=== PATIENT | female | born 1945 | race Caucasian/White ===

== ENCOUNTER 2018-10-07 16:45 | Emergency (ER) | payer MEDICARE, OTHER ==
[~2018-10-07] VITALS: Ht 154.9 cm; Wt 68.0 kg
[2018-10-07 19:11] LABS: Basophils # (auto) 0.1 uL; Basophils % (auto) 0.5 % (0.0-2.0); Eosinophils # (auto) 0.3 uL; Hematocrit 26.4 % (36.0-46.0); Lymphocytes # (auto) 1.7 uL; Mean Corpuscular Hemoglobin 32.7 pg (28.0-32.0); Mean Corpuscular Volume 96.3 fL (80.0-100.0); Monocytes % (auto) 8.7 % (0.0-12.0); Neutrophils # (auto) 8.4 uL; Neutrophils % (auto) 72.8 % (37.0-80.0); Platelet Count (auto) 231 10^3/uL (140-450); Red Blood Cells 2.74 10^6/uL (4.0-5.20); Red Cell Distribution Width 13.5 % (11.8-14.3); White Blood Cell 11.6 10^3/uL (4.4-10.8)
[2018-10-07 19:23] LABS: INR 0.98 (0.9-1.15); Partial Thromboplastin Time 31.1 sec (23.64-32.05)
[2018-10-07 19:29] LABS: Albumin 2.6 g/dL (3.4-5.0); Anion Gap 10 (5-15); Blood Urea Nitrogen 62 mg/dL (7-18); Calcium 8.7 mg/dL (8.5-10.1); Carbon Dioxide 26 mmol/L (21-32); Chloride 97 mmol/L (98-107); Glucose 157 mg/dL (74-106); Potassium 3.2 mmol/L (3.5-5.1); Sodium 133 mmol/L (136-145)
[2018-10-07 19:35] LABS: Alanine Aminotransferase 15 U/L (13-56); Alkaline Phosphatase 55 U/L (45-117); Aspartate Aminotransferase 9 U/L (15-37); BUN/Creatinine Ratio 24.2; Bilirubin, Total 0.6 mg/dL (0.2-1.0); GFR African American 24 mL/min; GFR Non-African American 20 mL/min; Total Protein 9.3 g/dL (6.4-8.2)
[2018-10-07] MEDS ORDERED: ONDANSETRON HCL 4 MG/2 ML VIAL IV ONE (22:15)
[2018-10-07] MEDS ORDERED: POTASSIUM CHL 10 Meq TABLET PO ONE (22:15)
[2018-10-07] MEDS ORDERED: MORPHINE SULF INJ 2 MG/ML SYRINGE 1ML IV ONE (22:15)
[2018-10-07 22:30] VITALS: BP 121/74
== END 2018-10-07 22:12 | disposition home or self-care (01) ==
LOC: EDBD 16:45 → ER 16:50
DX: S32.402A Unspecified fracture of left acetabulum, initial encounter for closed fracture (principal); S00.03XA Contusion of scalp, initial encounter; I61.9 Nontraumatic intracerebral hemorrhage, unspecified; C79.51 Secondary malignant neoplasm of bone; N17.9 Acute kidney failure, unspecified; E87.8 Other disorders of electrolyte and fluid balance, not elsewhere classified; D53.9 Nutritional anemia, unspecified; Z88.0 Allergy status to penicillin; W01.0XXA Fall on same level from slipping, tripping and stumbling without subsequent striking against object, initial encounter; Y93.89 Activity, other specified; Y92.89 Other specified places as the place of occurrence of the external cause; Y99.8 Other external cause status
CPT/HCPCS: 36415; 70450; 71045; 72125; 72192; 73610; 80053; 84484; 85025; 85610; 85730; 93005; 94761; 96374; 96375; 99284; J2270; J2405; 51702

== ENCOUNTER 2018-11-27 12:27 | Inpatient (IN) | payer MEDICARE, BC ==
[~2018-11-27] VITALS: Ht 172.7 cm; Wt 82.8 kg
[2018-11-27 13:51] LABS: Urine Bacteria NONE SEEN /hpf (None Seen); Urine Blood 2+ /uL (Negative); Urine Specific Gravity 1.009 (1.001-1.035); Urine WBC 3 /hpf (0 - 5)
[2018-11-27 14:04] LABS: Basophils # (auto) 0 uL; Basophils % (auto) 0.2 % (0.0-2.0); Eosinophils # (auto) 0.2 uL; Hemoglobin 7.2 g/dL (12.2-16.2); Monocytes # (auto) 0.8 uL; Neutrophils # (auto) 9.5 uL
[2018-11-27 14:06] LABS: Eosinophils % (auto) 1.9 % (0.0-7.0); Hematocrit 20.8 % (36.0-46.0); Lymphocytes # (auto) 1.6 uL; Mean Corpuscular Hemoglobin 33.1 pg (28.0-32.0); Mean Corpuscular Hgb Conc. 34.8 g/dL (32.0-36.0); Mean Corpuscular Volume 95.2 fL (80.0-100.0); Monocytes % (auto) 6.3 % (0.0-12.0); Neutrophils % (auto) 78.6 % (37.0-80.0); Platelet Count (auto) 366 10^3/uL (140-450); Red Blood Cells 2.19 10^6/uL (4.0-5.20); Red Cell Distribution Width 14.2 % (11.8-14.3)
[2018-11-27 14:08] LABS: INR 1.05 (0.9-1.15); Partial Thromboplastin Time 31.9 sec (23.64-32.05)
[2018-11-27 14:12] LABS: Alanine Aminotransferase 10 U/L (13-56); Albumin 2.2 g/dL (3.4-5.0); Aspartate Aminotransferase 13 U/L (15-37); BUN/Creatinine Ratio 29.1; Calcium 8.4 mg/dL (8.5-10.1); Carbon Dioxide 29 mmol/L (21-32); GFR African American 22 mL/min; GFR Non-African American 18 mL/min; Glucose 108 mg/dL (74-106)
[2018-11-27 14:30] LABS: Blood Urea Nitrogen 81 mg/dL (7-18)
[2018-11-27] MEDS ORDERED: DEXTROSE 50% SYRINGE 50 ML IV ONE (14:34)
[2018-11-27 14:52] LABS: Alcohol, Urine < 3.0 mg/dL (0-5); Amphetamine Screen, Urine NEGATIVE (NEGATIVE); Barbiturate Scree,Urine NEGATIVE (NEGATIVE); Benzodiazephine Screen, Urine NEGATIVE (NEGATIVE); Cannabinoid Screen, Urine NEGATIVE (NEGATIVE); Cocaine Screen, Urine NEGATIVE (NEGATIVE)
[2018-11-27 15:00] LABS: Opiate Scree,Urine POSITIVE (NEGATIVE); Phencyclidine Screen, Urine NEGATIVE (NEGATIVE)
[2018-11-27] MEDS ORDERED: DEXTROSE (50%) 50ML SYRG IV ONE (15:00)
[2018-11-27 15:18] LABS: Anion Gap 13 (5-15); Chloride 95 mmol/L (98-107); Sodium 137 mmol/L (136-145)
[2018-11-27 15:19] LABS: Alkaline Phosphatase 58 U/L (45-117); Bilirubin, Total 0.3 mg/dL (0.2-1.0); Total Protein 9.3 g/dL (6.4-8.2)
[2018-11-27 15:21] LABS: Potassium 2.2 mmol/L (3.5-5.1)
[2018-11-27] MEDS ORDERED: MORPHINE SULF INJ 2 MG/ML SYRINGE 1ML IV PRN (15:45)
[2018-11-27] MEDS ORDERED: POTASSIUM CHLORIDE 40 MEQ, LIDOCAINE 1% (LOCAL ANESTH.) 4 ML in SODIUM CHL 0.9% 100 ML IV ONE (15:45)
[2018-11-27] MEDS ORDERED: SODIUM CHLORIDE 0.9% 500 ML IV ONE (15:45)
[2018-11-27] MEDS ORDERED: NITROGLYCERIN 0.4 MG SL TAB SL PRN (15:45)
[2018-11-27] MEDS ORDERED: D5W/SOD CHL 0.45% 1,000 ML IV SCH (16:15)
[2018-11-27 16:46] LABS: % Iron Saturation 89.9 % (15-50)
[2018-11-27] MEDS: LEVOFLOXACIN 250MG 50 ML IV SCH (17:15)
[2018-11-27] MEDS: ACCU-CHEK COMFORT CURVE STRIP VI SCH ×4 (17:25→22:42)
[2018-11-27] MEDS: D5W/ SOD CHL 0.9%/KCL 20MEQ 1,000 ML IV SCH (18:21)
[2018-11-27 18:39] LABS: BUN/Creatinine Ratio 28.6
[2018-11-27] MEDS: FAMOTIDINE (10MG/ML) 2ML VL IV SCH (18:48)
[2018-11-27 18:56] LABS: Potassium 2.4 mmol/L (3.5-5.1)
[2018-11-28] MEDS: AMIODARONE HCL 900 MG in DEXTROSE 500 ML IV SCH ×2
[2018-11-28] MEDS: ACCU-CHEK COMFORT CURVE STRIP VI SCH ×12 (00:10→23:52)
[2018-11-28 05:57] LABS: INR 1.11 (0.9-1.15); Partial Thromboplastin Time 29.9 sec (23.64-32.05)
[2018-11-28 05:58] LABS: Hemoglobin 7.4 g/dL (12.2-16.2)
[2018-11-28 06:00] LABS: Hematocrit 21.5 % (36.0-46.0); Mean Corpuscular Hgb Conc. 34.4 g/dL (32.0-36.0); Mean Corpuscular Volume 95.8 fL (80.0-100.0); Platelet Count (auto) 362 10^3/uL (140-450); Red Blood Cells 2.24 10^6/uL (4.0-5.20); Red Cell Distribution Width 14.4 % (11.8-14.3); White Blood Cell 11.3 10^3/uL (4.4-10.8)
[2018-11-28 06:04] LABS: Basophils % (manual) 0 (0.0-2.0); Blast Cells 0; Metamyelocytes % 0; Myelocytes % 0; Promyelocytes % 0; Reactive Lymphocytes 0
[2018-11-28 06:12] LABS: Albumin 2.1 g/dL (3.4-5.0); BUN/Creatinine Ratio 28.7; Bilirubin, Total 0.4 mg/dL (0.2-1.0); Calcium 8.5 mg/dL (8.5-10.1); Magnesium 2.2 mg/dL (1.6-2.6); Total Protein 8.9 g/dL (6.4-8.2)
[2018-11-28] MEDS ORDERED: MORPHINE SULF INJ 2 MG/ML SYRINGE 1ML IV PRN (06:15)
[2018-11-28 06:18] LABS: Potassium 2.6 mmol/L (3.5-5.1)
[2018-11-28] MEDS: POTASSIUM CHL 20MEQ/100ML 100 ML IV SCH ×4 (06:52→13:47)
[2018-11-28] MEDS: D5W/ SOD CHL 0.9%/KCL 20MEQ 1,000 ML IV SCH (07:59)
[2018-11-28] MEDS ORDERED: POTASSIUM EFFERVESENT TAB 25 MEQ PO ONE (09:45)
[2018-11-28] MEDS ORDERED: POTASSIUM CHL 20 Meq TABLET PO ONE (09:45)
[2018-11-28] MEDS: DOCUSATE SOD 100 MG CAP PO SCH ×3 (10:00→22:00)
--- NOTE | 2018-11-28 10:30 | NUR ---
Admit to [facility] ARSLAN ARANA admitted to [facility] via gurney on utility pipe layer, and portable 02. Patient transferred to bed, connected to unit monitoring and oxygen, and weighed by bedscale. Patient oriented to MISAEL HARRISON RN primary RN, unit, room, bed, and unit policies regarding patient care and visiting hours. All questions and concerns addressed, patient verbalized understanding. Patient is on O2 NC 2 LPM, woke up when calling her name and touching her hand, not talking, crying and then sleeping. Skin assessment done, her buttock cover with optiform, bruises at lower legs, hematoma at right lower posterior leg, bruises at both forearm, IV at right hand, and IV access at port a cath (right upper chest). Pupil 3 mm reac to light both eyes.
[2018-11-28 11:00] VITALS: BP 120/61
[2018-11-28] MEDS: FAMOTIDINE (10MG/ML) 2ML VL IV SCH (11:40)
[2018-11-28] MEDS: LEVOFLOXACIN 250MG 50 ML IV SCH (11:41)
[2018-11-28 11:43] LABS: Band Neutrophils % (manual) 5; Eosinophils % (manual) 1 (0-7); Lymphocytes % (manual) 19 (10.0-50.0); Monocytes % (manual) 8 (0-12)
[2018-11-28 11:45] VITALS: BP 185/109
--- NOTE | 2018-11-28 11:45 | NUR ---
Her families at the bedside talked to Cheri on the phone stated that she doesn't want us give Morphine for pain management because it will cause patient more drowsy and they understood that made her came to the hospital due to ALOC.
--- NOTE | 2018-11-28 12:00 | NUR ---
Offered water and ice, patient unable to swallow at this time, will continue to monitor and care. Her relative at the bedside.
--- NOTE | 2018-11-28 14:10 | NUR ---
Ultrasound obtained at the bedside.
--- NOTE | 2018-11-28 14:47 | NUR ---
Sent Urine sample to the Lab
--- NOTE | 2018-11-28 15:20 | NUR ---
Dr. Almeida at the bedside ,seen and examined patient at this time, will D/C IV with KCL after complete this bag.
--- NOTE | 2018-11-28 15:40 | NUR ---
Called and talked to Dr. Roberts. made aware CPK 170, D-Dimer 8.16, received orders for venous ultrasound both legs R/O DVT, VQ scan R/O PE, and MD made aware as families requested to not give morphine to patient, received orders to D/C morphine and give Toradol PRN for pain management. Will continue to monitor and care.
[2018-11-28 15:43] VITALS: BP 160/87
[2018-11-28] MEDS: KETOROLAC TROMETH 15 mg/ml 1ML VL IV PRN (15:56)
--- NOTE | 2018-11-28 16:00 | NUR ---
Received a call from archives technician for venous ultrasound because patient cannot bend her legs during the test, called and talked to Dr. Roberts that there is a limit for obtaining the test, will cancel the test at this time. Patient also awake and moaning, HR 150-160 /min, due to families requested to not give Morphine, gave Toradol as order at this time, position changed for comfort, will continue to monitor and care.
[2018-11-28] MEDS ORDERED: SODIUM CHLORIDE 0.9% 1,000 ML IV SCH (19:00)
--- NOTE | 2018-11-28 19:45 | NUR ---
PATIENT STATUS PATIENT RECEIVED AFTER REPORT TACHYPNEIC, ACCESSORY MUSCLE USE BREATHING IN THE 40'S. HEART RATE IN THE 160'S-170'S AND DIAPHORETIC. RT AT BEDSIDE CIRCLE BEVELER BENITO ON HIS WAY PER RT. COMPLETE PHYSICAL ASSESSMENT DONE: SEE INTERVENTIONS.
--- NOTE | 2018-11-28 19:55 | NUR ---
ZHENG GLASS SANDER BELT AT BEDSIDE WITH NEW VERBAL ORDERS , READ BACK AND VERIFIED.
[2018-11-28 20:00] VITALS: BP_SYST 113; BP_SYST 138; BP_DIAS 100; BP_DIAS 79
[2018-11-28] MEDS ORDERED: SODIUM CHLORIDE 0.9% 1,000 ML IV ONE (20:00)
[2018-11-28] MEDS ORDERED: SODIUM BICARBONATE 8.4 % INJ 50ML VIAL IV ONE ×4 (20:00→20:08)
[2018-11-28] MEDS: InsuLIN REG 1unit/0.01ml Soln (100units/ml) SC SCH ×2 (20:00→23:59)
[2018-11-28] MEDS ORDERED: DEXTROSE (50%) 50ML SYRG IV PRN (20:00)
[2018-11-28] MEDS ORDERED: DILTIAZEM HCL 25 MG/5 ML VIAL IV ONE ×2 (20:21→20:30)
[2018-11-28] MEDS: SODIUM BICARBONATE 50ML VIAL 50 ML in SOD CHL 0.45% 1,000 ML IV SCH (20:29)
[2018-11-28] MEDS ORDERED: METOPROLOL TARTRATE 25 MG TAB ONE (20:55)
[2018-11-28 21:00] VITALS: BP 109/70
[2018-11-28] MEDS: METOPROLOL TARTRATE 25 MG TAB PO SCH (21:00)
[2018-11-28] MEDS ORDERED: AMIODARONE HCL 150 MG in D5W 5% 100 ML IV ONE (21:00)
[2018-11-28] MEDS ORDERED: DILTIAZEM 125mg/125ml BAG KIT 125 ML IV SCH (21:00)
[2018-11-28] MEDS ORDERED: AMIODARONE HCL (50 MG/ ML) 3 ML VIAL IV ONE (21:03)
[2018-11-28] MEDS ORDERED: AMIODARONE HCL 900 MG IV ONE (21:04)
--- NOTE | 2018-11-28 21:26 | NUR ---
SPOKE WITH PATIENT'S GRAND-DAUGHTER CASIMIRO OVER THE PHONE AND UPDATED HER ON PATIENT STATUS AND POSSIBILITY OF INTUBATION IF ABG DOES NOT IMPROVE. CASIMIRO VERBALIZES UNDERSTANDING. REQUESTING TO BE CALLED WITH ABG RESULTS AND STATES SHE WILL SPEAK WITH FAMILY MEMBERS REGARDING CODE STATUS. STATES IF THIS RN CANNOT GET A HOLD OF HER SHE WOULD LIKE EVERYTHING TO BE DONE FOR PATIENT.
[2018-11-28] MEDS: LACTULOSE 20Gm/30ML SOLN PO PRN (21:30)
[2018-11-28 22:00] VITALS: BP 99/72
--- NOTE | 2018-11-28 22:11 | NUR ---
SPOKE WITH PATIENT'S GRANDDAUGHTER ADELIA REQUESTING AND UPDATE UPDATED HER ON PATIENT STATUS
--- NOTE | 2018-11-28 22:20 | NUR ---
CODE STATUS SPOKE WITH PATIENT'S GRANDDAUGHTER CASIMIRO OVER THE PHONE CASIMIRO HAS DECIDED SHE WOULD LIKE PATIENT TO BE MODIFIED RESUSCITATIVE MEASURES, DOES NOT WANT INTUBATION: SEE CODE SHEET IN HARD CHART VERIFIED WITH NATHANAEL RASHID OVER THE PHONE
[2018-11-29] VITALS (17 sets, daily range): BP systolic 107–150; BP diastolic 65–93
--- NOTE | 2018-11-29 00:30 | NUR ---
IV insertion IV access obtained, via clean sterile technique by inserting 22 gauge catheter at LEFT HAND after 2 attempt(s). IV secured properly. No trauma to site. Patient tolerated well. NOTE: RIGHT HAND IV LEAKING, DC WITH CATHETER FULLY INTACT AND PRESSURE DRESSING APPLIED.
[2018-11-29] MEDS: KETOROLAC TROMETH 15 mg/ml 1ML VL IV PRN ×2 (01:39→08:31)
[2018-11-29] MEDS: ACCU-CHEK COMFORT CURVE STRIP VI SCH ×6 (04:00→23:51)
[2018-11-29] MEDS: InsuLIN REG 1unit/0.01ml Soln (100units/ml) SC SCH ×6 (04:30→23:55)
[2018-11-29 04:59] LABS: Hematocrit 20.7 % (36.0-46.0); Red Cell Distribution Width 14.7 % (11.8-14.3); White Blood Cell 16.2 10^3/uL (4.4-10.8)
[2018-11-29 05:01] LABS: Hemoglobin 7.2 g/dL (12.2-16.2); Mean Corpuscular Hemoglobin 33.5 pg (28.0-32.0); Mean Corpuscular Hgb Conc. 34.5 g/dL (32.0-36.0); Platelet Count (auto) 370 10^3/uL (140-450); Red Blood Cells 2.14 10^6/uL (4.0-5.20)
--- NOTE | 2018-11-29 05:14 | NUR ---
STOOL SAMPLE COLLECTED AND SENT TO LAB VIA [facility]
[2018-11-29 05:16] LABS: Basophils % (manual) 0 (0.0-2.0); Blast Cells 0; Eosinophils % (manual) 0 (0-7); Metamyelocytes % 0; Myelocytes % 0; Promyelocytes % 0; Reactive Lymphocytes 0
[2018-11-29 05:24] LABS: BUN/Creatinine Ratio 20.7; Potassium 3.6 mmol/L (3.5-5.1)
[2018-11-29 05:27] LABS: Bilirubin, Total 0.4 mg/dL (0.2-1.0); Total Protein 8.6 g/dL (6.4-8.2)
[2018-11-29] MEDS: AMIODARONE HCL 900 MG in DEXTROSE 500 ML IV SCH ×3 (06:08)
[2018-11-29 06:45] LABS: Band Neutrophils % (manual) 6; Lymphocytes % (manual) 10 (10.0-50.0); Monocytes % (manual) 2 (0-12)
--- NOTE | 2018-11-29 08:00 | NUR ---
Opening Shift Note Assumed care of patient. Patient Aphasic. Opens eyes but does not track. Gomes to gravity. IV right hand 22G running .45ns w/bi-carb at 75ml/hr and right chest port-a-cath running Amiodarone at .5. Both IV and Port-a-cath clean, dry, and intact. NG tube right nare, 18F 60cm at the nares secured and patent. No S/S of distress/SOB or pain. Instructed on POC and to call for assist PRN. Bed locked and in the lowest position, side rails up x2, call light with in reach. Will continue to monitor.
[2018-11-29] MEDS ORDERED: ACETAMINOPHEN 650 MG RECT SUPP PR PRN (08:15)
--- NOTE | 2018-11-29 08:30 | NUR ---
Dr. Roberts and family at bedside.
[2018-11-29] MEDS: SODIUM BICARBONATE 50ML VIAL 50 ML in SOD CHL 0.45% 1,000 ML IV SCH (10:00)
--- NOTE | 2018-11-29 10:00 | NUR ---
Medication dosages, usages, and side effects explained to patient and family at bedside. Patient unable to verbalize understanding, but family verbalized understanding. Will continue to monitor.
--- NOTE | 2018-11-29 10:15 | NUR ---
AIR MATTRESS: Ordered air mattress to [facility]. Order# [id number] [id number]. Call [facility] at [phone] if needed to follow up or any changes. Addendum: 11/29/18 at 1016 by Shiloh Pittman RN Amended: Links added.
[2018-11-29] MEDS: LEVOFLOXACIN 250MG 50 ML IV SCH (10:21)
[2018-11-29] MEDS: METOPROLOL TARTRATE 25 MG TAB PO SCH ×2 (10:22→21:54)
[2018-11-29] MEDS: DOCUSATE SOD 100 MG CAP PO SCH ×2 (10:23→21:54)
[2018-11-29] MEDS: LACTULOSE 20Gm/30ML SOLN PO PRN (10:23)
[2018-11-29] MEDS: FAMOTIDINE (10MG/ML) 2ML VL IV SCH (10:23)
--- NOTE | 2018-11-29 11:35 | NUR ---
WOUND CARE NOTE: Wound care in to see patient per wound care request regarding low Nicolás score of 11 and skin integrity issue that are noted by bedside nurse. Patient is 73 years old female, with admitting diagnosis of Metabolic Encephalopathy. She has history of multiple myeloma, NIDDM, CVA with L side deficit, htn, CAD. Patient is resting in SDU bed in Rm 263. She's awake and non-verbal. She's max assist in turning and repositioning and her Nicolás score is 11. Patient appears to be in mild pain using Ballard Fowler Faces Pain Scale. Skin assessment done with the assistance of patient's nurse, RACHID Saab. Patient's R 3rd toe noted with edema and erythema, area is clean and dry, left open to air. Patient's medial sacrum has intact skin with 2x2 cm non-blanchable redness (Stage 1 pressure injury) Patient's family at bedside reported that patient's R 3rd toe has been red and edematous "for five days". Multi intact ecchymosis also noted to patient's BLE. Patient is incontinent and passed big amount of formed stool. Grace care given, applied Z Guard cream and covered sacrum with Opti foam gentle dressing. Photograph of patient's skin integrity issue are taken for reference. Repositioned patient for comfort facing her Lt side, redistributed pressure points with pillows. Patient tolerated well. Family at bedside. RECOMMENDATION: BID/PRN cleaning and application of Z Guard cream to sacrum, perineum per MD order, dietary consult, frequent turning and repositioning schedule as condition permits ,redistribute pressure points with pillows, air mattress (ordered), elevate bilateral heels on pillows, keep clean and dry, continue monitoring by wound care while patient is hospitalized. Addendum: 11/29/18 at 1813 by Shiloh Pittman RN Amended: Links added.
--- NOTE | 2018-11-29 13:00 | NUR ---
No change in patient status. No S/S of pain/SOB or distress noted. Will continue to monitor.
--- NOTE | 2018-11-29 16:00 | NUR ---
Patient placed on specialty mattress.
--- NOTE | 2018-11-29 18:30 | NUR ---
End of shift note Patient Aphasic. Opens eyes but does not track. Gomes to gravity. IV right hand 22G running blood at 125ml/hr and right chest port-a-cath running Amiodarone at .5. Both IV and Port-a-cath clean, dry, and intact. NG tube right nare, 18F 60cm at the nares secured and patent. No S/S of distress/SOB or pain. Bed locked and in the lowest position, side rails up x2, call light with in reach. report to be given to conveyancer RN. Will continue to monitor.
[2018-11-29] MEDS ORDERED: D5W 5% 1,000 ML IV SCH (20:30)
--- NOTE | 2018-11-29 20:30 | NUR ---
Opening Shift Note Assumed care of patient, resting in bed with eyes closed , easily aroused /opens eyes when called by name by granddaughter Kadie at bedside.Patient remains aphasic with no S/S of distress/SOB or pain. Instructed granddaughter Kadie on POC and all questions concerns addressed with her. Encouraged to call the unit if more questions arise, verbalized understanding. Blood xfusion infusing to left hand and amiodarone gtt infusing to left chest portacath.See interventions for complete physical assessment. Continue POC/monitoring.
--- NOTE | 2018-11-29 21:46 | NUR ---
URINE SAMPLE COLLECTED AND SENT TO LAB VIA BULLET
[2018-11-29 23:00] LABS: Protein, Urine 107.8 mg/dL (0.0-11.9)
[2018-11-30] VITALS: BP 143/84
[2018-11-30] MEDS: AMIODARONE HCL 900 MG in DEXTROSE 500 ML IV SCH (03:10)
--- NOTE | 2018-11-30 03:36 | NUR ---
AM CARE/LINEN CHANGE BED BATH PROVIDED USING CHG WIPES AND WARM WASH CLOTHS. PATIENT HAD SOFT BROWN BOWEL MOVEMENT, PERINEAL AREA CLEANSED.SKIN INTEGRITY REASSESSED AT THIS TIME, SACRUM WITH BLANCHABLE REDNESS, Z-GUARD CREAM AND OPTIFOAM PLACED TO COCCYX/SACRAL AREA. NEW GOWN PLACED ON PATIENT. REPOSITIONED IN BED FOR COMFORT AND PRESSURE RELIEF, HEELS ELEVATED BILATERALLY ON PILLOW.
[2018-11-30] MEDS: ACCU-CHEK COMFORT CURVE STRIP VI SCH ×5 (03:40→20:00)
[2018-11-30] MEDS: InsuLIN REG 1unit/0.01ml Soln (100units/ml) SC SCH ×5 (03:46→21:06)
[2018-11-30 04:00] VITALS: BP 134/71
[2018-11-30 05:04] LABS: Basophils # (auto) 0 uL; Basophils % (auto) 0.1 % (0.0-2.0); Eosinophils # (auto) 0 uL; Hematocrit 25.7 % (36.0-46.0); Hemoglobin 8.7 g/dL (12.2-16.2); Lymphocytes # (auto) 1.4 uL; Lymphocytes % (auto) 5.8 % (10.0-50.0); Mean Corpuscular Hemoglobin 32.5 pg (28.0-32.0); Mean Corpuscular Hgb Conc. 33.8 g/dL (32.0-36.0); Mean Corpuscular Volume 96.1 fL (80.0-100.0); Monocytes # (auto) 0.8 uL; Monocytes % (auto) 3.4 % (0.0-12.0); Neutrophils # (auto) 22.3 uL; Neutrophils % (auto) 90.7 % (37.0-80.0); Nucleated Red Blood Cells % 0.6 %; Platelet Count (auto) 318 10^3/uL (140-450); Red Blood Cells 2.68 10^6/uL (4.0-5.20); Red Cell Distribution Width 15.7 % (11.8-14.3); White Blood Cell 24.6 10^3/uL (4.4-10.8)
[2018-11-30 05:28] LABS: Calcium 8.8 mg/dL (8.5-10.1); Magnesium 2.4 mg/dL (1.6-2.6); Potassium 4.1 mmol/L (3.5-5.1)
[2018-11-30 05:45] LABS: BUN/Creatinine Ratio 20.1; Bilirubin, Total 0.8 mg/dL (0.2-1.0); Total Protein 8.7 g/dL (6.4-8.2)
--- NOTE | 2018-11-30 06:27 | NUR ---
END OF SHIFT NOTE PATIENT RESTING IN BED WITH EYES CLOSED, NO S/S OF DISTRESS OR SOB. HR 98 , CONTINUES TO BE ON AMIO DRIP, POX 99% AND RR 25. WILL ENDORSE CARE TO DAY SHIFT RN AND CONTINUE MONITORING.
[2018-11-30] MEDS ORDERED: VANCOMYCIN 1GM/250ML 250 ML IV ONE (07:45)
[2018-11-30] MEDS ORDERED: VANCOMYCIN PER PHARMACY 0 MG IV SCH (07:45)
[2018-11-30 07:48] VITALS: BP 143/84
--- NOTE | 2018-11-30 08:00 | NUR ---
Opening Shift Note Assumed care of patient. Patient Aphasic. Opens eyes but does not track. Gomes to gravity. IV right hand 22G running D5W at 75ml/hr and right chest port-a-cath running Amiodarone at .5. Both IV and Port-a-cath patent, clean, dry, and intact. NG tube right nare, 18F 60cm at the nares secured and patent. No S/S of distress/SOB or pain. Instructed on POC and to call for assist PRN. Bed locked and in the lowest position, side rails up x2, call light with in reach. Will continue to monitor.
--- NOTE | 2018-11-30 08:30 | NUR ---
Dr. Camilla Roberts at bedside.
[2018-11-30] MEDS: metroNIDAZOLE 500MG/100ML 100 ML IV SCH ×3 (09:39→21:06)
[2018-11-30] MEDS: DOCUSATE SOD 100 MG CAP PO SCH ×2 (09:42→21:07)
[2018-11-30] MEDS: FAMOTIDINE (10MG/ML) 2ML VL IV SCH (09:42)
[2018-11-30] MEDS: METOPROLOL TARTRATE 25 MG TAB PO SCH ×2 (09:42→21:07)
[2018-11-30] MEDS: LACTULOSE 20Gm/30ML SOLN PO PRN (09:58)
[2018-11-30] MEDS ORDERED: POTASSIUM CHLORIDE 20 MEQ in D5W/LACTATED RINGERS 1,000 ML IV SCH (10:00)
--- NOTE | 2018-11-30 10:00 | NUR ---
Medication dosages, usages, and side effects explained to patient. Patient unable to verbalize understanding. Will continue to monitor.
[2018-11-30 10:27] LABS: Amylase 10 U/L (25-115); Lipase 59 U/L (73-393)
--- NOTE | 2018-11-30 10:30 | NUR ---
Dr. Constantino at bedside.
--- NOTE | 2018-11-30 11:00 | NUR ---
health information tech at bedside.
--- NOTE | 2018-11-30 11:07 | NUR ---
Nutrition consult/assessment Notes please see attached link for complete assessment Est. Needs BW [id number] kcal (23-25 kcal/kgBW), 60-75 gms pro (0.8-1.0 gms/kgBW d/t elev RFT severe hypoalb). Will continue to monitor pertinent labs and reassess nutrient need prn Addendum: 11/30/18 at [address] Amended: Links added.
--- NOTE | 2018-11-30 11:30 | NUR ---
Dr. Marroquin at bedside.
[2018-11-30 11:45] VITALS: BP 145/87
--- NOTE | 2018-11-30 12:30 | NUR ---
Family at bedside.
[2018-11-30] MEDS: LEVOFLOXACIN 250MG 50 ML IV SCH (13:29)
--- NOTE | 2018-11-30 14:00 | NUR ---
No change in patient status. No S/S of pain/SOB or distress noted. Will continue to monitor.
[2018-11-30 15:50] VITALS: BP 152/82
--- NOTE | 2018-11-30 17:00 | NUR ---
No change in patient status. No S/S of pain/SOB or distress noted. Will continue to monitor.
[2018-11-30] MEDS ORDERED: FUROSEMIDE 40 MG/4 ML VIAL IV ONE (18:30)
--- NOTE | 2018-11-30 18:30 | NUR ---
End of shift note Patient Aphasic. Opens eyes but does not track. Gomes to gravity. IV right hand 22G running fluids at 75ml/hr and right chest port-a-cath running Amiodarone at .5. Both IV and Port-a-cath clean, dry, and intact. NG tube right nare, 18F 60cm at the nares secured and patent. No S/S of distress/SOB or pain. Bed locked and in the lowest position, side rails up x2, call light with in reach. report to be given to night warehouse selector RN. Will continue to monitor.
--- NOTE | 2018-11-30 19:00 | NUR ---
Opening notes Assumed care, laying on bed with her eyes closed, nonresponsive to verbal and tactile stimuli, shallow and fast breathing noted, on O2 @ 2L/min, sat 99%, NGT in place, righ subclavian port a cath infusing amiodarone drip @ 0.5 mg/min, PIV infusing D5 1/2 NS @ 100ml/hr, paiz catheter draining to a light hien urine. Bed in lowest position with side rails up, bed alarm on. Will continue care.
[2018-11-30] MEDS: D5W/SOD CHL 0.45% 1,000 ML IV SCH (19:04)
[2018-11-30 20:00] VITALS: BP 141/79
--- NOTE | 2018-11-30 23:47 | NUR ---
ELIMINATION MODERATE AMOUNT OF PASTY, BROWNISH STOOLS NOTED. CLEANSED AND KEPT DRY AND COMFORTABLE. REPOSITIONED FOR COMFORT.
[2018-12-01] VITALS (7 sets, daily range): BP systolic 116–169; BP diastolic 79–94
[2018-12-01] MEDS: ACCU-CHEK COMFORT CURVE STRIP VI SCH ×6 (00:24→20:49)
[2018-12-01] MEDS: InsuLIN REG 1unit/0.01ml Soln (100units/ml) SC SCH ×6 (00:29→20:51)
[2018-12-01] MEDS ORDERED: AMIODARONE HCL 900 MG in DEXTROSE 500 ML IV SCH (02:15)
--- NOTE | 2018-12-01 04:00 | NUR ---
Patient bathe/linen change/ Elimination Had moderate amount of soft stools.Patient given complete bath. Skin integrity assessed for any changes, sacral optifoam changed. Linens and gown changed. Patient repositioned for comfort.
[2018-12-01 05:32] LABS: Hematocrit 26.2 % (36.0-46.0); Hemoglobin 8.8 g/dL (12.2-16.2); Mean Corpuscular Hemoglobin 32.6 pg (28.0-32.0); Mean Corpuscular Hgb Conc. 33.5 g/dL (32.0-36.0); Mean Corpuscular Volume 97.2 fL (80.0-100.0); Platelet Count (auto) 237 10^3/uL (140-450); Red Cell Distribution Width 15.4 % (11.8-14.3); White Blood Cell 29.6 10^3/uL (4.4-10.8)
[2018-12-01] MEDS: metroNIDAZOLE 500MG/100ML 100 ML IV SCH ×3 (05:38→22:08)
[2018-12-01 05:47] LABS: BUN/Creatinine Ratio 19.9; Calcium 8.3 mg/dL (8.5-10.1); Potassium 3.7 mmol/L (3.5-5.1)
[2018-12-01 05:56] LABS: Bilirubin, Total 0.8 mg/dL (0.2-1.0); Total Protein 8.6 g/dL (6.4-8.2)
[2018-12-01 06:01] LABS: Basophils % (manual) 0 (0.0-2.0); Blast Cells 0; Eosinophils % (manual) 0 (0-7); Metamyelocytes % 0; Myelocytes % 0; Promyelocytes % 0; Reactive Lymphocytes 0
[2018-12-01 06:58] LABS: Band Neutrophils % (manual) 3; Lymphocytes % (manual) 8 (10.0-50.0); Monocytes % (manual) 3 (0-12)
--- NOTE | 2018-12-01 08:00 | NUR ---
Opening Shift Note Assumed care of patient, laying in bed, eyes closed, arousable to voice, unable to follow commands. No S/S of distress or pain. RT nare NGT clamped, placement verified by auscultation and aspiration. See interventions for complete assessment. Bed locked on lowest position, side rails up x2, bed alarms on at all times, will continue to monitor for changes Q1hr and PRN.
--- NOTE | 2018-12-01 08:10 | NUR ---
Dr Roberts at bedside, updated on patient's status. Informed VQ scan and Hida Scan still pending, cannot be done at the same time per Nuclear Med Bioinformatics Software Engineer Robert. Dr Roberts states "Prioritize VQ scan and get BLE US to check for DVT". Patient seen and examined. Spoke to patient's Koby and CELINA/elizabeth Alonzo regarding plan of care. Cheri states "She'll stay here over the weekend and we want her to go to long-term with hospice on Tuesday." Will place social service consult. Verbal orders read back and verified. Will carry out.
--- NOTE | 2018-12-01 08:15 | NUR ---
Patient had moderate amount of soft brown stool, perineal care rendered. Skin integrity assessed for any changes, skin tear noted on medial sacrum, z-guard and optifoam placed, will take wound photograph for reference. Linens changed. Patient repositioned for comfort.
--- NOTE | 2018-12-01 09:10 | NUR ---
Patient out of room to Nuclear Med for VQ scan.
[2018-12-01] MEDS ORDERED: VANCOMYCIN 500 MG in D5W 5% 100 ML IV ONE (10:00)
[2018-12-01] MEDS: DOCUSATE SOD 100 MG CAP PO SCH ×2 (10:00→22:08)
--- NOTE | 2018-12-01 10:00 | NUR ---
Patient back to room, VS WNL. Will continue to monitor.
[2018-12-01] MEDS ORDERED: MEROPENEM 500MG IVPB 50 ML IV ONE (10:30)
[2018-12-01] MEDS: D5W/SOD CHL 0.45% 1,000 ML IV SCH ×2 (10:56→14:15)
[2018-12-01] MEDS: FAMOTIDINE (10MG/ML) 2ML VL IV SCH (11:02)
[2018-12-01] MEDS: METOPROLOL TARTRATE 25 MG TAB PO SCH (11:03)
--- NOTE | 2018-12-01 12:45 | NUR ---
Dr Constantino at bedside, updated on patient's status. Patient seen and examined. No new orders at this time.
--- NOTE | 2018-12-01 14:32 | NUR ---
Kami Moreira FACILITY MAINTENANCE WORKER at bedside, updated on patient's status. Patient seen and examined. Will carry out new orders.
--- NOTE | 2018-12-01 14:46 | NUR ---
Kami Moreira HEEL PAINTER at bedside, spoke to patient's [facility]/A Cheri Terry, updated on patient's status and POC. All questions addressed. Cheri states "I want to change to comfort measures only." Dr Roberts informed over the phone, verbalized understanding and states "OK. Change the code status on Meditech to DNR with comfort measures only." Telephone orders read back and verified. Will carry out.
--- NOTE | 2018-12-01 16:31 | NUR ---
Spoke to Kami Moreira over the phone, updated on patient's status. Received telephone order to discontinue Amiodarone drip, start patient on Amiodarone tablet and Metoprolol Succinate tablet. Telephone orders read back and verified. Will carry out.
--- NOTE | 2018-12-01 17:10 | NUR ---
assessment Per ss consult refer to hospice. 2nd consult living situation grand daughter Cheri PATRICK. Per Cheri PATRICK She wants [facility] [facility] Dr Roberts talked to her about. order has been sent to [facility] [place]. Merary from [facility] has already spoken with Cheri PATRICK and is looking for placement. Addendum: 12/01/18 at 1723 by Adry Peraza Amended: Links added.
--- NOTE | 2018-12-01 17:59 | NUR ---
Per consult received, patient received and order for SNF hospice placement with [facility]. Patient and family chose [facility] for services. Faxed referral, placed follow up call, spoke with Merary, and was advised that she would reach out to the granddaughter and tentatively schedule to see the patient Tue or Tue, as patient is not scheduled to discharge until Tuesday. Addendum: 12/01/18 at 1802 by HARSH BROTHERS Amended: Links added.
--- NOTE | 2018-12-01 20:10 | NUR ---
OPEN SHIFT NOTE PATIENT RESTING IN BED WITH NO S/S OF DISTRESS OR SOB. EYES CLOSED WITH ALL VSS AT THIS TIME. PATIENT IS APHASIC AND WILL OCCASIONALLY GRUNT , OPENS EYES TO LIGHT SHAKING AND DOES NOT TRACK VISUALLY. NGT TO RIGHT NARE AUSCULTATED FOR POSITIVE PLACEMENT. PATIENT TURNED TO SIDE FOR COMFORT AND REPOSITIONING AND NOTED TO HAVE A MODERATE AMOUNT OF SOFT FORMED BM, LIGHT BROWN IN COLOR. PERINEAL AREA CLEANSED, OPTIFOAM TO SACRUM AND ZGUARD BARRIER CREAM. COMPLETE PHYSICAL ASSESSMENT DONE: SEE INTERVENTIONS. CONTINUE POC.
--- NOTE | 2018-12-01 21:03 | NUR ---
REPORT GIVEN TO DARRIAN RASHID ALL QUESTIONS CONCERNS ADDRESSED
--- NOTE | 2018-12-01 21:40 | NUR ---
[facility] monitor and portable 02. All patient medications and personal belongings transferred with patient to receiving floor. Patient care transferred to Christie RASHID. No distress/sob or pain noted upon departure.
--- NOTE | 2018-12-01 21:50 | NUR ---
Received patient from [facility] Assumed care of patient, eyes closed and non verbal but makes moaning sounds. No S/S of distress/SOB or pain. Positioned patient comfortably. Bed in lowest position, side rails up, call light within reach. Will continue to monitor Q1HR or PRN.
[2018-12-01] MEDS: AMIODARONE HCL 200 MG TAB PO SCH (22:09)
[2018-12-02] MEDS: ACCU-CHEK COMFORT CURVE STRIP VI SCH ×7 (00:08→23:36)
[2018-12-02] MEDS: InsuLIN REG 1unit/0.01ml Soln (100units/ml) SC SCH ×7 (00:09→23:35)
[2018-12-02] MEDS: D5W/SOD CHL 0.45% 1,000 ML IV SCH ×2 (00:30→10:22)
[2018-12-02 05:13] VITALS: BP 144/93
[2018-12-02 05:15] LABS: Basophils # (auto) 0 uL; Basophils % (auto) 0.2 % (0.0-2.0); Eosinophils # (auto) 0.1 uL; Eosinophils % (auto) 0.3 % (0.0-7.0); Hematocrit 28.6 % (36.0-46.0); Hemoglobin 9.6 g/dL (12.2-16.2); Lymphocytes # (auto) 1.7 uL; Lymphocytes % (auto) 7.6 % (10.0-50.0); Mean Corpuscular Hemoglobin 32.7 pg (28.0-32.0); Mean Corpuscular Hgb Conc. 33.4 g/dL (32.0-36.0); Mean Corpuscular Volume 97.8 fL (80.0-100.0); Monocytes # (auto) 0.7 uL; Monocytes % (auto) 3.1 % (0.0-12.0); Neutrophils # (auto) 19.8 uL; Neutrophils % (auto) 88.8 % (37.0-80.0); Nucleated Red Blood Cells % 2.7 %; Platelet Count (auto) 190 10^3/uL (140-450); Red Blood Cells 2.92 10^6/uL (4.0-5.20); Red Cell Distribution Width 15.5 % (11.8-14.3); White Blood Cell 22.2 10^3/uL (4.4-10.8)
[2018-12-02 05:41] LABS: Albumin 1.9 g/dL (3.4-5.0); BUN/Creatinine Ratio 22.7; Calcium 8.1 mg/dL (8.5-10.1); Potassium 3.1 mmol/L (3.5-5.1)
[2018-12-02 05:49] LABS: Total Protein 8.4 g/dL (6.4-8.2)
[2018-12-02] MEDS: metroNIDAZOLE 500MG/100ML 100 ML IV SCH ×3 (05:52→21:32)
--- NOTE | 2018-12-02 07:30 | NUR ---
Opening Shift Note Assuming care of patient at this time. Patient is resting with eyes closed. Patient does not open eyes upon stimulation. Patient is nonverbal, does not respond to any questions or her name. Patient does not appear to be in any distress. Breathing is even and unlabored. Bed is locked and lowered with side rails up x2. Instructed patient on the plan of care, however, unable to respond or verbalize. Instructed to call for assistance. Call light within reach.
--- NOTE | 2018-12-02 08:30 | NUR ---
at bedside Dr. Roberts at bedside discussing plan of care with patient's best friend, Koby, and this RN. Decision regarding hospice and facility to be made on Tuesday.
--- NOTE | 2018-12-02 08:39 | NUR ---
Visitor at bedside Koby, best friend, at bedside at this time.
[2018-12-02 09:00] VITALS: BP 138/86
[2018-12-02] MEDS: DOCUSATE SOD 100 MG CAP PO SCH (10:00)
[2018-12-02] MEDS: AMIODARONE HCL 200 MG TAB PO SCH ×2 (10:05→21:33)
[2018-12-02] MEDS: METOPROLOL SUCCINATE XL 50 MG TAB PO SCH (10:06)
[2018-12-02] MEDS: FAMOTIDINE (10MG/ML) 2ML VL IV SCH (10:06)
[2018-12-02] MEDS: MEROPENEM 500MG IVPB 50 ML IV SCH (10:30)
--- NOTE | 2018-12-02 11:14 | NUR ---
Colace Non-Admin Colace not administered at this time. Patient unable to swallow. Meds given through NG tube, however, colace cannot be crushed. Received new order for lactulose. Will administer per doctor's orders.
[2018-12-02 13:00] VITALS: BP 122/76
[2018-12-02] MEDS ORDERED: VANCOMYCIN 750 MG in D5W 5% 250 ML IV ONE (13:00)
[2018-12-02 17:00] VITALS: BP 131/88
--- NOTE | 2018-12-02 18:00 | NUR ---
Patient Cleaned Patient had a bowel movement at this time, which was small, formed. Cleaned patient and provided perineal care. Changed optifoam and applied z-guard. No distress noted at time. Patient was also repositioned.
[2018-12-02] MEDS ORDERED: POTASSIUM CHL 20MEQ/100ML 100 ML IV ONE (18:15)
--- NOTE | 2018-12-02 19:30 | NUR ---
Closing Note Patient resting in bed with eyes closed. Patient has been unresponsive today. Visitors at bedside. Report given. Will endorse to hotel night auditor RN.
[2018-12-02] MEDS: D5W/SOD CHL 0.45%/KCL 20MEQ 1,000 ML IV SCH (19:57)
[2018-12-02] MEDS: LACTULOSE 20Gm/30ML SOLN PO SCH (21:33)
[2018-12-02 22:00] VITALS: BP 123/87
[2018-12-03] MEDS: ACCU-CHEK COMFORT CURVE STRIP VI SCH ×5 (04:57→19:54)
[2018-12-03] MEDS: InsuLIN REG 1unit/0.01ml Soln (100units/ml) SC SCH ×6 (04:57→19:53)
[2018-12-03 05:00] VITALS: BP 115/68
[2018-12-03 06:13] LABS: Basophils # (auto) 0 uL; Basophils % (auto) 0.2 % (0.0-2.0); Eosinophils # (auto) 0.1 uL; Eosinophils % (auto) 0.6 % (0.0-7.0); Hematocrit 28.5 % (36.0-46.0); Hemoglobin 9.5 g/dL (12.2-16.2); Lymphocytes # (auto) 1.7 uL; Mean Corpuscular Hemoglobin 32.5 pg (28.0-32.0); Mean Corpuscular Hgb Conc. 33.3 g/dL (32.0-36.0); Mean Corpuscular Volume 97.5 fL (80.0-100.0); Monocytes # (auto) 0.7 uL; Monocytes % (auto) 4.2 % (0.0-12.0); Neutrophils # (auto) 14.2 uL; Nucleated Red Blood Cells % 2.1 %; Platelet Count (auto) 175 10^3/uL (140-450); Red Blood Cells 2.93 10^6/uL (4.0-5.20); Red Cell Distribution Width 15.2 % (11.8-14.3); White Blood Cell 16.7 10^3/uL (4.4-10.8)
[2018-12-03 06:37] LABS: Albumin 1.7 g/dL (3.4-5.0); Calcium 7.8 mg/dL (8.5-10.1); Potassium 3.2 mmol/L (3.5-5.1)
[2018-12-03 06:46] LABS: BUN/Creatinine Ratio 25.7; Bilirubin, Total 0.9 mg/dL (0.2-1.0); Total Protein 8.1 g/dL (6.4-8.2)
[2018-12-03] MEDS: metroNIDAZOLE 500MG/100ML 100 ML IV SCH ×3 (06:47→21:36)
--- NOTE | 2018-12-03 07:20 | NUR ---
Opening Shift Note Assumed care of patient, awake and alert. No S/S of distress/SOB or pain. Instructed on POC and to call for assist PRN, will continue to monitor for changes Q1hr and PRN. Bed locked in lowest position with two side rails up and call light in reach.
[2018-12-03] MEDS: D5W/SOD CHL 0.45%/KCL 20MEQ 1,000 ML IV SCH ×2 (07:35→21:24)
--- NOTE | 2018-12-03 07:40 | NUR ---
PATIENT HAD 7 BEATS OF VTAC. A 12 LEAK EKG WAS DONE AND RESULT WAS 87 HR NORMAL SINUS RHYTHM. A PAGE WAS SENT TO DR. Germania ERIC.
[2018-12-03 08:00] VITALS: BP 118/64
--- NOTE | 2018-12-03 08:15 | NUR ---
DR. ERIC RETURNED THE JULIANN AND DETERMINED TO DO NOTHING AT THIS TIME. DAY SHIFT RN WAS MADE AWARE OF EVENT.
--- NOTE | 2018-12-03 08:40 | NUR ---
DR JEANETH BEARD
[2018-12-03 09:00] VITALS: BP 118/64
[2018-12-03] MEDS ORDERED: POTASSIUM CHL 20MEQ/100ML 100 ML IV ONE ×2 (10:00→16:00)
[2018-12-03] MEDS: METOPROLOL SUCCINATE XL 50 MG TAB PO SCH (10:00)
[2018-12-03 13:00] VITALS: BP 129/69
[2018-12-03] MEDS: FAMOTIDINE (10MG/ML) 2ML VL IV SCH (13:39)
[2018-12-03] MEDS: MEROPENEM 500MG IVPB 50 ML IV SCH (13:39)
[2018-12-03] MEDS: AMIODARONE HCL 200 MG TAB PO SCH ×2 (13:39→21:36)
[2018-12-03] MEDS: LACTULOSE 20Gm/30ML SOLN PO SCH ×2 (13:39→21:36)
--- NOTE | 2018-12-03 13:41 | NUR ---
MEDICATION MEDICATIONS DOCUMENTED NOW, COMPUTER DID NOT SAVE THE ORIGINAL TIME ADMINISTERED.
[2018-12-03 17:00] VITALS: BP 147/77
[2018-12-03 22:00] VITALS: BP 140/85
[2018-12-04] MEDS: ACCU-CHEK COMFORT CURVE STRIP VI SCH ×6 (00:56→16:34)
[2018-12-04] MEDS: InsuLIN REG 1unit/0.01ml Soln (100units/ml) SC SCH ×6 (00:57→21:06)
[2018-12-04 05:33] VITALS: BP 139/89
[2018-12-04 05:50] LABS: Basophils # (auto) 0.1 uL; Basophils % (auto) 0.3 % (0.0-2.0); Eosinophils # (auto) 0.1 uL; Eosinophils % (auto) 0.4 % (0.0-7.0); Hemoglobin 9.5 g/dL (12.2-16.2); Lymphocytes # (auto) 1.6 uL; Mean Corpuscular Hemoglobin 32.9 pg (28.0-32.0); Mean Corpuscular Hgb Conc. 32.8 g/dL (32.0-36.0); Mean Corpuscular Volume 100.4 fL (80.0-100.0); Monocytes # (auto) 0.9 uL; Monocytes % (auto) 5.1 % (0.0-12.0); Neutrophils # (auto) 15.2 uL; Neutrophils % (auto) 85.2 % (37.0-80.0); Platelet Count (auto) 177 10^3/uL (140-450); Red Blood Cells 2.89 10^6/uL (4.0-5.20); Red Cell Distribution Width 15.6 % (11.8-14.3); White Blood Cell 17.8 10^3/uL (4.4-10.8)
[2018-12-04 06:14] LABS: Potassium 3.5 mmol/L (3.5-5.1)
[2018-12-04] MEDS: metroNIDAZOLE 500MG/100ML 100 ML IV SCH (06:17)
[2018-12-04 06:26] LABS: Albumin 1.6 g/dL (3.4-5.0); BUN/Creatinine Ratio 25.8; Bilirubin, Total 0.6 mg/dL (0.2-1.0); Calcium 7.7 mg/dL (8.5-10.1); Total Protein 7.9 g/dL (6.4-8.2)
[2018-12-04 08:00] VITALS: BP 140/97
[2018-12-04] MEDS: MEROPENEM 500MG IVPB 50 ML IV SCH ×2 (09:28→21:31)
[2018-12-04] MEDS: FAMOTIDINE (10MG/ML) 2ML VL IV SCH (09:29)
[2018-12-04] MEDS: AMIODARONE HCL 200 MG TAB PO SCH ×2 (09:30→21:31)
[2018-12-04] MEDS: METOPROLOL SUCCINATE XL 50 MG TAB PO SCH (09:30)
[2018-12-04] MEDS: LACTULOSE 20Gm/30ML SOLN PO SCH ×2 (09:31→21:31)
[2018-12-04] MEDS ORDERED: VANCOMYCIN 750 MG in D5W 5% 250 ML IV ONE (10:00)
[2018-12-04] MEDS: D5W/SOD CHL 0.45%/KCL 20MEQ 1,000 ML IV SCH ×2 (10:54→23:35)
[2018-12-04] MEDS ORDERED: MORPHINE SULF INJ 2 MG/ML SYRINGE 1ML IV ONE (12:45)
[2018-12-04 14:07] LABS: Hepatitis C Antibody Negative (Negative)
[2018-12-04 14:08] LABS: Hepatitis A Ab IgM Negative; Hepatitis B Core IgM Negative; Hepatitis B Surface Antigen Negative (Negative)
[2018-12-04 17:22] VITALS: BP 125/81
--- NOTE | 2018-12-04 18:00 | NUR ---
PATIENT DISCHARGE HELD DUE TO FAMILY CONCERNS ABOUT POSSIBLE DIALYSIS WITH THE HOSPICE. PATIENT FAMILY ALSO REQUESTING FACILITY PLACEMENT WITH HOSPICE INSTEAD OF HOME WITH HOSPICE. VAMPER DESIREE OSMAN INFORMED ME SHE WOULD DISCUSS THIS WITH DR ERIC AND I RECEIVED ORDERS TO HOLD THE DISCHARGE FROM PROVIDER MICHA.
[2018-12-04 19:38] LABS: Albumin 1.6 g/dL (3.4-5.0); BUN/Creatinine Ratio 25.9; Calcium 7.7 mg/dL (8.5-10.1); Potassium 3.8 mmol/L (3.5-5.1)
[2018-12-04 19:41] LABS: Bilirubin, Total 0.7 mg/dL (0.2-1.0); Total Protein 7.8 g/dL (6.4-8.2)
--- NOTE | 2018-12-04 19:55 | NUR ---
OPENING SHIFT NOTE Patient in bed with eyes closed, non responsive to verbal or pain stimuli. Patient's respiration even and unlabored, no non verbal cues to pain noted and observed. NGT patent and intact. Gomes cath patent and intact draining moderate amount of light hien urine with no sediments. Will continue to monitor.
[2018-12-04 22:00] VITALS: BP 128/77
[2018-12-05] MEDS: InsuLIN REG 1unit/0.01ml Soln (100units/ml) SC SCH ×5 (00:01→15:53)
[2018-12-05] MEDS: ACCU-CHEK COMFORT CURVE STRIP VI SCH ×5 (00:01→15:54)
[2018-12-05 05:00] VITALS: BP 141/86
[2018-12-05 05:34] LABS: Urine Amorphous Crystal FEW /hpf (None Seen); Urine Bacteria FEW /hpf (None Seen); Urine Blood 1+ /uL (Negative); Urine Hyaline Cast FEW /lpf (0 - 2); Urine Specific Gravity 1.014 (1.001-1.035); Urine WBC 1 /hpf (0 - 5)
[2018-12-05 06:47] LABS: Basophils # (auto) 0 uL; Eosinophils # (auto) 0.1 uL; Eosinophils % (auto) 0.4 % (0.0-7.0); Hematocrit 29.3 % (36.0-46.0); Hemoglobin 9.5 g/dL (12.2-16.2); Lymphocytes # (auto) 1.5 uL; Lymphocytes % (auto) 8.8 % (10.0-50.0); Mean Corpuscular Hemoglobin 32.4 pg (28.0-32.0); Mean Corpuscular Hgb Conc. 32.5 g/dL (32.0-36.0); Mean Corpuscular Volume 99.5 fL (80.0-100.0); Monocytes # (auto) 1.1 uL; Monocytes % (auto) 6.6 % (0.0-12.0); Neutrophils # (auto) 14.6 uL; Neutrophils % (auto) 84.2 % (37.0-80.0); Nucleated Red Blood Cells % 0.4 %; Platelet Count (auto) 181 10^3/uL (140-450); Red Blood Cells 2.94 10^6/uL (4.0-5.20); Red Cell Distribution Width 15.7 % (11.8-14.3); White Blood Cell 17.4 10^3/uL (4.4-10.8)
[2018-12-05 06:49] LABS: Albumin 1.6 g/dL (3.4-5.0); Calcium 7.8 mg/dL (8.5-10.1)
[2018-12-05 06:51] LABS: BUN/Creatinine Ratio 25.4
[2018-12-05 06:54] LABS: Bilirubin, Total 0.5 mg/dL (0.2-1.0); Total Protein 7.7 g/dL (6.4-8.2)
[2018-12-05 08:00] VITALS: BP 134/76
[2018-12-05 08:54] VITALS: BP 134/76
[2018-12-05] MEDS: FAMOTIDINE (10MG/ML) 2ML VL IV SCH (10:00)
[2018-12-05] MEDS: AMIODARONE HCL 200 MG TAB PO SCH (10:32)
[2018-12-05] MEDS: METOPROLOL SUCCINATE XL 50 MG TAB PO SCH (10:32)
[2018-12-05] MEDS: LACTULOSE 20Gm/30ML SOLN PO SCH (10:32)
[2018-12-05] MEDS: MEROPENEM 500MG IVPB 50 ML IV SCH (10:33)
--- NOTE | 2018-12-05 10:56 | NUR ---
Per consult, received a request to fax discharge summary to [facility]. Summary was faxed, and confirmation received. Addendum: 12/05/18 at 1058 by HARSH BROTHERS Amended: Links added.
--- NOTE | 2018-12-05 11:00 | NUR ---
PATIENT TO BE DISCHARGED TO A PENITENTIARY FACILITY WITH HOSPICE WHEN ARRANGED BY PHYSICIAN/INTERNIST
[2018-12-05] MEDS: D5W/SOD CHL 0.45%/KCL 20MEQ 1,000 ML IV SCH (12:22)
--- NOTE | 2018-12-05 13:00 | NUR ---
PATIENT TO DISCHARGE TO HOSPICE WITH [facility] IN PLACE PER DR ERIC
[2018-12-05 13:01] VITALS: BP 139/92
[2018-12-05] MEDS ORDERED: FUROSEMIDE 40 MG/4 ML VIAL IV ONE (13:15)
[2018-12-05 13:31] LABS: Protein, Urine 62.6 mg/dL (0.0-11.9)
[2018-12-05 13:46] LABS: Creatinine, Urine 55.3 mg/dL (30.0-125.0)
[2018-12-05 17:22] VITALS: BP 154/107
[2018-12-05 17:26] VITALS: BP 154/107
--- NOTE | 2018-12-05 18:36 | NUR ---
PATIENT TO BE PICKED UP BY [facility] TO RECEIVE HOSPICE CARE BY [facility]. ALL IV ACCESS DISCONTINUED. TELEMETRY BOX DISCONTINUED AND RETURNED TO [facility]. BOND TRADER SCHEDULED BETWEEN 7:30 AND 8:30 PM. GRANDDAUGHTER TO ARRIVE AND SIGN DISCHARGE PAPERWORK.
--- NOTE | 2018-12-05 19:15 | NUR ---
ASSUMED CARE, PT. D/C TO HOSPICE, WAITING FOR TRANSPORT.
--- NOTE | 2018-12-05 19:55 | NUR ---
PT. D/C TO HOSPICE, PT. IN STABLE CONDITION.
== END 2018-12-05 19:55 | disposition hospice, inpatient (51) | DRG 871 ==
LOC: EDBD 12:27 → EDUNIT# 12:27 → ER 12:34 → TELE 12:35 → DOU IN ICU 11-28 09:47 → TELE-WESTW 12-01 21:55
PROVIDERS: ADMIT Nurse Practitioner Acute Care; ATTEND Family Medicine
PROC: 30233N1 Transfusion of Nonautologous Red Blood Cells into Peripheral Vein, Percutaneous Approach (ICD-10-PCS; principal; 2018-11-29)
DX: A41.9 Sepsis, unspecified organism (principal); G93.41 Metabolic encephalopathy; I50.43 Acute on chronic combined systolic (congestive) and diastolic (congestive) heart failure; N17.0 Acute kidney failure with tubular necrosis; K72.00 Acute and subacute hepatic failure without coma; E43 Unspecified severe protein-calorie malnutrition; C90.00 Multiple myeloma not having achieved remission; N39.0 Urinary tract infection, site not specified; N18.5 Chronic kidney disease, stage 5; I13.2 Hypertensive heart and chronic kidney disease with heart failure and with stage 5 chronic kidney disease, or end stage renal disease; I69.354 Hemiplegia and hemiparesis following cerebral infarction affecting left non-dominant side; E87.0 Hyperosmolality and hypernatremia; D64.9 Anemia, unspecified; E11.649 Type 2 diabetes mellitus with hypoglycemia without coma; E87.6 Hypokalemia; I25.10 Atherosclerotic heart disease of native coronary artery without angina pectoris; I08.0 Rheumatic disorders of both mitral and aortic valves; D63.1 Anemia in chronic kidney disease; K82.8 Other specified diseases of gallbladder; R65.20 Severe sepsis without septic shock; Z66 Do not resuscitate; Z51.5 Encounter for palliative care; E11.22 Type 2 diabetes mellitus with diabetic chronic kidney disease; E86.0 Dehydration; I67.2 Cerebral atherosclerosis; Z68.27 Body mass index [BMI] 27.0-27.9, adult; Z88.0 Allergy status to penicillin; Z79.84 Long term (current) use of oral hypoglycemic drugs; Z92.21 Personal history of antineoplastic chemotherapy
CPT/HCPCS: 36415; 36600; 51702; 70450; 71045; 74176; 76705; 78226; 78582; 80048; 80053; 80074; 80202; 80307; 80320; 81001; 82140; 82150; 82270; 82550; 82570; 82805; 82962; 83036; 83540; 83550; 83605; 83690; 83735; 83880; 83970; 84132; 84133; 84156; 84300; 84443; 84484; 85007; 85025; 85027; 85045; 85379; 85610; 85730; 86850; 86900; 86901; 86920; 87040; 87081; 87086; 93005; 93306; 93970; 96374; G0378; J1815; J2001; J2185; J3480; J3490; J7060